=== PATIENT | male | born 1970 | race Caucasian/White ===

== ENCOUNTER 2024-03-31 09:52 | Emergency (ER) | payer MEDICARE, MEDICAID ==
[~2024-03-31] VITALS: Ht 182.9 cm; Wt 95.1 kg
[2024-03-31] MEDS ORDERED: CEPH-585 PO (10:39)
[2024-03-31] MEDS: cephalexin 250mg capsule PO ONE (10:59)
[2024-03-31] MEDS: TETanus/Pertussis (Acell)/Diphther VAC/PF (Tdap-Adult) 0.5ml syringe IMVAC ONE (11:40)
[2024-03-31 11:44] VITALS: BP 112/67; PULSE 50; RESP 16; TEMP 98; O2SAT 99
== END 2024-03-31 11:50 | disposition home or self-care (01) ==
LOC: ER 09:53
DX: S63.92XA Sprain of unspecified part of left wrist and hand, initial encounter (principal); L03.114 Cellulitis of left upper limb; Z88.1 Allergy status to other antibiotic agents; Z79.2 Long term (current) use of antibiotics; W18.30XA Fall on same level, unspecified, initial encounter; Y93.89 Activity, other specified; Y92.89 Other specified places as the place of occurrence of the external cause; Y99.8 Other external cause status
CPT/HCPCS: 73110; 73130; 90471; 90715; 99284